=== PATIENT | male | born 1950 | race Caucasian/White ===

== ENCOUNTER 2019-11-23 17:40 | Emergency (ER) | payer MEDICARE, OTHER ==
[~2019-11-23] VITALS: Ht 185.4 cm; Wt 70.0 kg
[2019-11-23 17:58] VITALS: BP 129/91
--- NOTE | 2019-11-23 18:20 | NUR ---
ECOLOGY PROFESSOR: PT TO ROOM AT THIS TIME VIA PERSONAL WHEELCHAIR. ROSELYN
--- NOTE | 2019-11-23 18:22 | NUR ---
THIS IS A 68 YEAR OLD MALE WHO STATES HE HAS AN ALLERGY TO MILK AND WOULD LIKE MD TO CHECK OUT HIS ARM RASH, ALSO MEDICATION REFILL
--- NOTE | 2019-11-23 19:01 | NUR ---
REPORT FROM KELIN PHELPS. PT RESTING WITH NO NEEDS AT THIS TIME. CALL LIGHT IN REACH
--- NOTE | 2019-11-23 19:31 | NUR ---
Patient given discharge instructions and they have confirmed that they understand the instructions. Patient taken out by wheelchair and given a cab voucher.
[2019-12-10] MEDS ORDERED: ALBU8.5H8 INH (10:33)
[2019-12-10] MEDS ORDERED: PRED20TA PO (10:33)
[2019-12-10] MEDS ORDERED: LISI40TA PO (10:33)
[2019-12-10] MEDS ORDERED: AMLO10TA8 PO (10:33)
== END 2019-11-23 19:41 | disposition home or self-care (01) ==
LOC: ED 19:00
DX: L20.9 Atopic dermatitis, unspecified (principal); I10 Essential (primary) hypertension; F17.200 Nicotine dependence, unspecified, uncomplicated; Z76.0 Encounter for issue of repeat prescription
CPT/HCPCS: 99283

== ENCOUNTER 2020-02-02 11:52 | Emergency (ER) | payer MEDICARE ==
[~2020-02-02] VITALS: Ht 185.4 cm; Wt 69.5 kg
[~2020-02-02 11:52] MED LIST: ALBU8.5H8 INH; AMLO10TA8 PO; LISI40TA PO; PRED20TA PO
[2020-02-02 11:55] VITALS: BP 132/78
== END 2020-02-02 13:12 | disposition home or self-care (01) ==
LOC: ED 12:12
DX: L20.84 Intrinsic (allergic) eczema (principal); F17.210 Nicotine dependence, cigarettes, uncomplicated; Z76.0 Encounter for issue of repeat prescription; I11.0 Hypertensive heart disease with heart failure; I50.9 Heart failure, unspecified; J44.9 Chronic obstructive pulmonary disease, unspecified; I25.2 Old myocardial infarction
CPT/HCPCS: 99283; 99406

== ENCOUNTER 2020-06-08 11:36 | Emergency (ER) | payer MEDICARE ==
[~2020-06-08] VITALS: Ht 170.2 cm; Wt 70.0 kg
[~2020-06-08 11:36] MED LIST changes: +AMLO-211 PO; -AMLO10TA8 PO; -LISI40TA PO; +LISI40TA9 PO
[2020-06-08 11:58] VITALS: BP 197/148
[2020-06-08] MEDS ORDERED: PERMETHRIN CRM 5%, 60GM ONE (12:12)
--- NOTE | 2020-06-08 12:17 | NUR ---
Pt being cleaned in decon shower. Pt provided ellimite cream and clean clothes.
[2020-06-08] MEDS ORDERED: PERMETHRIN CRM 5%, 60GM TP ONE (12:30)
[2020-06-08] MEDS ORDERED: IBUPROFEN 600 MG TABLET ONE (12:46)
[2020-06-08] MEDS ORDERED: IBUPROFEN 600 MG TABLET PO ONE (13:00)
== END 2020-06-08 13:30 | disposition home or self-care (01) ==
LOC: ED 13:20
DX: S40.862A Insect bite (nonvenomous) of left upper arm, initial encounter (principal); S40.861A Insect bite (nonvenomous) of right upper arm, initial encounter; S80.862A Insect bite (nonvenomous), left lower leg, initial encounter; S80.861A Insect bite (nonvenomous), right lower leg, initial encounter; S30.861A Insect bite (nonvenomous) of abdominal wall, initial encounter; J44.9 Chronic obstructive pulmonary disease, unspecified; I11.0 Hypertensive heart disease with heart failure; I50.9 Heart failure, unspecified; I25.2 Old myocardial infarction; F17.200 Nicotine dependence, unspecified, uncomplicated; W57.XXXA Bitten or stung by nonvenomous insect and other nonvenomous arthropods, initial encounter; Y93.89 Activity, other specified; Y92.89 Other specified places as the place of occurrence of the external cause; Y99.8 Other external cause status
CPT/HCPCS: 99283